=== PATIENT | male | born 1960 | race American Indian/Alaskan Native ===

== ENCOUNTER 2018-02-27 19:00 | Emergency (ER) | payer BC, OTHER, SELFPAY ==
[2018-02-27] MEDS ORDERED: Albuterol-Ipratrop 3 mg / 0.5 (3 ml) UD ONE (19:05)
[2018-02-27] MEDS ORDERED: Magnesium Sulfate 2 gm/50 ml 2 GM/50 ML BAG IVPB ONE (19:13)
[2018-02-27 19:14] VITALS: BMI 29.6
[2018-02-27] MEDS: Albuterol-Ipratrop 3 mg / 0.5 (3 ml) UD IH SCH ×3 (19:15→19:45)
--- NOTE | 2018-02-27 20:06 | ED PDOC ---
Arrival/HPI - General Historian: Patient - History of Present Illness Narrative History of Present Illness (Text): 02/27/18 20:02 57 yo M presents c/o SOB with wheezing due to his asthma, reports taking his inhaler and nebulizer with minima improvement prompting ER visit. Reports to having a cough and asthma symptoms for the past 1 week. Denies any fever, chills, CP, N/V, back pain. Has been hospitalized in the past due to his asthma, never been intubated. Has no other complaints. <Wendy Garza PA-C - Last Filed: 02/28/18 01:06> <Romero Chavarria - Last Filed: 02/28/18 06:06> - General Chief Complaint: Shortness Of Breath Time Seen by Provider: 02/27/18 19:07 Past Medical History - Infectious Disease Hx of Infectious Diseases: None - Tetanus Immunization Tetanus Immunization: Up to Date - Past Medical History Past Medical History: No Previous - Cardiac Hx Cardiac Disorders: No - Pulmonary Hx Asthma: Yes Hx Bronchitis: Yes Hx Chronic Obstructive Pulmonary Disease (COPD): Yes - Musculoskeletal/Rheumatological Hx Falls: No - Psychiatric Hx Substance Use: No - Past Surgical History Past Surgical History: No Previous - Anesthesia Hx Anesthesia: No Hx Anesthesia Reactions: No - Suicidal Assessment Feels Threatened In Home Enviroment: No <Wendy Garza PA-C - Last Filed: 02/28/18 01:06> Family/Social History Family/Social History: No Known Family HX Smoking Status: Light Smoker < 10 Cigarettes Daily Hx Alcohol Use: No Hx Substance Use: No Substance used: marijuana <Wendy Garza PA-C - Last Filed: 02/28/18 01:06> Allergies/Home Meds <Wendy Garza PA-C - Last Filed: 02/28/18 01:06> <Romero Chavarria - Last Filed: 02/28/18 06:06> Allergies/Adverse Reactions: Allergies HAIR DYE Allergy (Uncoded 02/27/18 19:10) RASH Review of Systems - Review of Systems Constitutional: absent: Fatigue, Fevers ENT: absent: Sore Throat, Rhinorrhea, Sinus Congestion Respiratory: SOB, Cough, Wheezing Cardiovascular: absent: Chest Pain, Edema Gastrointestinal: absent: Abdominal Pain, Nausea, Vomiting Musculoskeletal: absent: Arthralgias, Back Pain, Neck Pain Skin: absent: Rash, Pruritis Neurological: absent: Headache, Dizziness <Wendy Garza PA-C - Last Filed: 02/28/18 01:06> Physical Exam Vital Signs Temp Pulse Resp BP Pulse Ox 02/27/18 19:10 98.0 F 74 19 144/90 98 Temperature: Afebrile Blood Pressure: Normal Pulse: Regular Respiratory Rate: Normal Appearance: Positive for: Well-Appearing, Non-Toxic, Other (+mild respiratory distress, able to speak in short sentences, no tripod position) Mental Status: Positive for: Alert and Oriented X 3 - Systems Exam Head: Present: Atraumatic, Normocephalic Pupils: Present: PERRL Extroacular Muscles: Present: EOMI Conjunctiva: Present: Normal Mouth: Present: Moist Mucous Membranes Neck: Present: Normal Range of Motion Respiratory/Chest: Present: Clear to Auscultation, Good Air Exchange, R espiratory Distress (+b/l epiratory wheezing), Wheezes. No: Accessory Muscle Use Cardiovascular: Present: Regular Rate and Rhythm, Normal S1, S2. No: Murmurs Abdomen: No: Tenderness, Distention, Peritoneal Signs Back: Present: Normal Inspection Upper Extremity: Present: Normal Inspection. No: Cyanosis, Edema Lower Extremity: Present: Normal Inspection. No: Edema Neurological: Present: GCS=15, CN II-XII Intact, Speech Normal Skin: Present: Warm, Dry, Normal Color. No: Rashes Psychiatric: Present: Alert, Oriented x 3, Normal Insight, Normal Concentration <Wendy Garza PA-C - Last Filed: 02/28/18 01:06> Vital Signs Temp Pulse Resp BP Pulse Ox 02/27/18 21:32 98.1 F 72 18 132/69 97 02/27/18 20:59 98.1 F 69 18 152/87 H 100 02/27/18 19:11 22 98 02/27/18 19:10 98.0 F 74 19 144/90 98 <Romero Chavarria - Last Filed: 02/28/18 06:06> Medical Decision Making ED Course and Treatment: 02/27/18 20:05 Plan : - IV - labs - EKG - CXR - solumedrol IV - Mg IV - duonebs x3 EKG : NSR at 64 bpm, no acute ST changes. CXR : NAD. Labs reviewed, patient noted to be anemic with hgb of 10. On re-evaluation, patient reports improvement of symptoms, denies any CP, SOB or wheezing. On exam, patient remains AAOx3, in no acute distress. Lungs clear to auscultation, cardiac RRR. VS T 98.1 P 69 R 18 O2sat : 100%RA. Diagnostic results d/w the patient in great detail, notified of anemia and need for further follow up and evaluation as the patient denies any h/o anemia. Based on history, exam and diagnostic results, plan will be for outpatient follow up. Patient states that he used to take symbicort for his asthma and is asking for a refill. Patient instructed to follow-up with the clinic in 1-2 days without fail. Advised to take medication as prescribed. Return to the emergency room at any time for any new or worsening symptoms. Patient states he fully agrees with and understands discharge instructions. States that he agrees with the plan and disposition. Verbalized and repeated discharge instructions and plan. I have giv en the patient opportunity to ask any additional questions. - RAD Interpretation Radiology Orders: 02/27/18 19:11 CHEST PORTABLE [RAD] Stat - Medication Orders Current Medication Orders: Magnesium Sulfate (Magnesium Sulfate 2 Gm/50 Ml Water) 2 gm in 50 mls @ 50 mls/hr IVPB ONCE ONE Stop: 02/27/18 20:12 Discontinued Medications Albuterol/Ipratropium (Duoneb 3 Mg/0.5 Mg (3 Ml) Ud) 3 ml IH Q15M CORDELL Stop: 02/27/18 19:46 Last Admin: 02/27/18 19:45 Dose: 3 ml Methylprednisolone (Solu-Medrol) 125 mg IVP STAT STA Stop: 02/27/18 19:12 Last Admin: 02/27/18 19:16 Dose: 125 mg IVP Administration Document 02/27/18 19:16 SB (Rec: 02/27/18 19:54 [id number]) Charges for Administration # of IVP Administrations 1 <Wendy Garza PA-C - Last Filed: 02/28/18 01:06> - Lab Interpretations Lab Results: 02/27/18 20:08 02/27/18 20:08 Lab Results 02/27/18 20:08: Sodium 140, Potassium 3.9, Chloride 105, Carbon Dioxide 26, Anion Gap 13, BUN 14, Creatinine 1.0, Est GFR ( Amer) > 60, Est GFR (Non- Af Amer) > 60, Random Glucose 93, Calcium 8.7, Magnesium 2.0, Total Bilirubin 0.2, AST 22, ALT 28, Alkaline Phosphatase 85, Total Protein 6.4, Albumin 3.9, Globulin 2.5, Albumin/Globulin Ratio 1.6 02/27/18 20:08: WBC 5.6, RBC 3.28 L, Hgb 10.4 L, Hct 31.0 L, MCV 94.5, MCH 31.7, MCHC 33.5, RDW 13.6, Plt Count 246, MPV 8.9, Gran % 45.5 L, Lymph % (Auto) 39.9 H, [place] % (Auto) 9.2 H, Eos % (Auto) 5.0, Baso % (Auto) 0.4, Gran # 2.53, Lymph # (Auto) 2.2, [place] # (Auto) 0.5, Eos # (Auto) 0.3, Baso # (Auto) 0.02 - RAD Interpretation Radiology Orders: 02/27/18 19:11 CHEST PORTABLE [RAD] Stat - Medication Orders Current Medication Orders: Discontinued Medications Albuterol/Ipratropium (Duoneb 3 Mg/0.5 Mg (3 Ml) Ud) 3 ml IH Q15M CORDELL Stop: 02/27/18 19:46 Last Admin: 02/27/18 19:45 Dose: 3 ml Albuterol/Ipratropium (Duoneb 3 Mg/0.5 Mg (3 Ml) Ud) 3 ml IH STAT STA Stop: 02/27/18 20:41 Last Admin: 02/27/18 20:40 Dose: 3 ml Albuterol/Ipratropium (Duoneb 3 Mg/0.5 Mg (3 Ml) Ud) 3 ml IH STAT STA Stop: 02/27/18 20:43 Last Admin: 02/27/18 20:50 Dose: 3 ml Magnesium Sulfate (Magnesium Sulfate 2 Gm/50 Ml Water) 2 gm in 50 mls @ 50 mls/hr IVPB ONCE ONE Stop: 02/27/18 20:12 Last Admin: 02/27/18 20:00 Dose: 50 mls/hr eMAR Start Stop Document 02/27/18 20:00 (Rec: 02/27/18 20:19 [id number]) Intravenous Solution Start Date 02/27/18 Start Time 20:00 Methylprednisolone (Solu-Medrol) 125 mg IVP STAT STA Stop: 02/27/18 19:12 Last Admin: 02/27/18 19:16 Dose: 125 mg IVP Administration Document 02/27/18 19:16 RG (Rec: 02/27/18 19:54 RG [id number]) Charges for Administration # of IVP Administrations 1 <Romero Chavarria - Last Filed: 02/28/18 06:06> - PA / DIRECTOR OF REGIONAL SALES / Resident Statement MALA has reviewed & agrees with the documentation as recorded. <Wendy Garza PA-C - Last Filed: 02/28/18 01:06> - PA / DIRECTOR OF REGIONAL SALES / Resident Statement MALA has reviewed & agrees with the documentation as recorded. MALA has examined the patient and agrees with the treatment plan. <Romero Chavarria - Last Filed: 02/28/18 06:06> Disposition/Present on Arrival - Present on Arrival Any Indicators Present on Arrival: No History of DVT/PE: No History of Uncontrolled Diabetes: No Urinary Catheter: No History of Decub. Ulcer: No History Surgical Site Infection Following: None - Disposition Have Diagnosis and Disposition been Completed?: Yes Disposition Time: 21:30 Patient Plan: Discharge <Wendy Garza PA-C - Last Filed: 02/28/18 01:06> <Romero Chavarria - Last Filed: 02/28/18 06:06> - Disposition Diagnosis: Asthma, Anemia Disposition: HOME/ ROUTINE Condition: IMPROVED Discharge Instructions (ExitCare): Asthma in Adults, Normocytic Normochromic Anemia Additional Instructions: Thank you for letting us take care of you today. You were treated for asthma. The emergency medical care you received today was directed at your acute symptoms. If you were prescribed any medication, please fill it and take as directed. It may take several days for your symptoms to resolve. Return to the Emergency Department if your symptoms worsen, do not improve, or if you have any other problems. Please contact the clinic in 2 days for re-evaluation and follow up. Bring any paperwork you were given at discharge with you along with any medications you are taking to your follow up visit. Our treatment cannot replace ongoing medical care by a primary care provider (PCP) outside of the emergency department. Thank you for allowing the [facility] team to be part of your care today. If you had an X-Ray : A Radiologist will review the ED reading if any change in treatment is needed we will contact you. Your hgb was 10 : please follow this up with a doctor for further evaluation without fail. Prescriptions: Albuterol 0.083% [Albuterol Sulfate 3 Ml] 3 ml IH Q4 #100 neb RX: predniSONE [predniSONE Tab] 40 mg PO DAILY #8 tab Budesonide/Formoterol Fumarate [Symbicort] 2 puff IH BID #1 inhaler Referrals: PCP,NO [Primary Care Provider] - Follow up with primary [facility] [Outside] - Follow up with primary Forms: [employer] (Thai), WORK NOTE
[2018-02-27 20:19] LABS: BASO # 0.02 K/mm3 (0.0-2.0); BASO % 0.4 % (0.0-3.0); EOS # 0.3 (0.0-0.7); GRAN # 2.53 (1.4-6.5); GRAN % 45.5 % (50.0-68.0); HEMOGLOBIN 10.4 g/dL (14.0-18.0); LYMPH # 2.2 (1.2-3.4); LYMPH % 39.9 % (22.0-35.0); MEAN CELL VOLUME 94.5 fl (80.0-105.0); MEAN CORPUSCULAR HEMOGLOBIN 31.7 pg (25.0-35.0); MEAN CORPUSCULAR HGB CONC 33.5 g/dl (31.0-37.0); MEAN PLATELET VOLUME 8.9 fl (7.0-11.0); MONO # 0.5 (0.1-0.6); MONO % 9.2 % (1.0-6.0); RBC 3.28 10^6/uL (3.5-6.1); RED CELL DISTRIBUTION WIDTH 13.6 % (11.5-14.5); WHITE BLOOD COUNT 5.6 10^3/uL (4.5-11.0)
[2018-02-27 20:35] LABS: ALB/GLOB RATIO 1.6 (1.1-1.8); ALBUMIN 3.9 g/dL (3.0-4.8); ALT/SGPT 28 U/L (7-56); AST/SGOT 22 U/L (17-59); BLOOD UREA NITROGEN 14 mg/dL (7-21); CALCIUM 8.7 mg/dL (8.4-10.5); GFR NON-AFRICAN AMERICAN > 60
[2018-02-27] MEDS ORDERED: Albuterol-Ipratrop 3 mg / 0.5 (3 ml) UD IH STA ×2 (20:40→20:42)
[2018-02-27 21:00] VITALS: RESP 18; TEMP 98.1
[2018-02-27 21:41] VITALS: BP 132/69; PULSE 72; O2SAT 97
--- NOTE | 2018-02-28 08:55 | CARD ---
APPROVED REPORT Date of service: 02/27/2018 EKG Measurement Heart [id number] <Conclusion> Normal sinus rhythm Voltage criteria for left ventricular hypertrophy with repolarization changes Abnormal ECG
--- NOTE | 2018-02-28 08:59 | RAD ---
HISTORY: cough, wheezing COMPARISON: Chest x-ray performed 08/08/14 TECHNIQUE: Chest, one view. FINDINGS: LUNGS: No focal consolidation. Please note that chest x-ray has limited sensitivity for the detection of pulmonary masses. PLEURA: No significant pleural effusion identified. No definite pneumothorax . CARDIOVASCULAR: The cardiomediastinal silhouette appears within normal limits of size. No significant atherosclerotic calcification present. OSSEOUS STRUCTURES: No acute osseous abnormality identified. VISUALIZED UPPER ABDOMEN: Unremarkable. OTHER FINDINGS: None. IMPRESSION: No focal consolidation.
== END 2018-02-27 21:41 | disposition home or self-care (01) ==
LOC: ED 19:00
DX: D64.9 Anemia, unspecified (principal); J45.909 Unspecified asthma, uncomplicated; F17.210 Nicotine dependence, cigarettes, uncomplicated
CPT/HCPCS: 71045; 80053; 83735; 85025; 93005; 96374; 99284; J2930

== ENCOUNTER 2018-04-17 13:55 | Emergency (ER) | payer OTHER ==
[2018-04-17 13:55] VITALS: BMI 30.1
[2018-04-17 14:06] VITALS: TEMP 98
[2018-04-17] MEDS: Albuterol-Ipratrop 3 mg / 0.5 (3 ml) UD IH SCH ×3 (14:36→15:10)
--- NOTE | 2018-04-17 14:36 | ED PDOC ---
Arrival/HPI - General Historian: Patient - History of Present Illness Narrative History of Present Illness (Text): 04/17/18 14:32 57 y/o M with PMHx of Asthma presents to ED with complaints of cough with productive white sputum, wheezing and shortness of breath that's been ongoing for the past 2 weeks, with worsening symptoms since 9am today and associated subjective fevers and chills. He reports he tried his symbicort and ventolin inhalers today, with minimal improvement in symptoms. He reports he has recently been using his symbicort more than usual, and has increased his ventolin use to >7x/day. He denies headache, dizziness, fatigue, chest pain, palpitations, nausea, vomiting, hematemesis, constipation, diarrhea, hematochezia, hematuria dysuria. He denies any recent bleeding episodes. PMD: None Time/Duration: Prior to Arrival Symptom Onset: Sudden Symptom Course: Unchanged Severity Level: Moderate <Tara Skinner - Last Filed: 04/17/18 17:43> <Lam Wells - Last Filed: 04/17/18 18:34> - General Chief Complaint: Shortness Of Breath Time Seen by Provider: 04/17/18 14:02 Past Medical History - Provider Review Nursing Documentation Reviewed: Yes - Infectious Disease Hx of Infectious Diseases: None - Tetanus Immunization Tetanus Immunization: Up to Date - Past Medical History Past Medical History: No Previous - Cardiac Hx Cardiac Disorders: No - Pulmonary Hx Asthma: Yes Hx Bronchitis: Yes Hx Chronic Obstructive Pulmonary Disease (COPD): Yes - Musculoskeletal/Rheumatological Hx Falls: No - Psychiatric Hx Substance Use: No - Past Surgical History Past Surgical History: No Previous - Anesthesia Hx Anesthesia: No Hx Anesthesia Reactions: No - Suicidal Assessment Feels Threatened In Home Enviroment: No <Tara Skinner - Last Filed: 04/17/18 17:43> Family/Social History - Physician Review Nursing Documentation Reviewed: Yes Family/Social History: Unknown Family HX Smoking Status: Light Smoker < 10 Cigarettes Daily Hx Alcohol Use: No Hx Substance Use: No Substance used: marijuana <Tara Skinner - Last Filed: 04/17/18 17:43> Allergies/Home Meds <Tara Skinner - Last Filed: 04/17/18 17:43> <Lam Wells - Last Filed: 04/17/18 18:34> Allergies/Adverse Reactions: Allergies HAIR DYE Allergy (Uncoded 02/27/18 19:10) RASH Review of Systems - Review of Systems Constitutional: Fevers Eyes: Normal ENT: Normal Respiratory: SOB, Cough, Sputum (white), Wheezing Cardiovascular: Normal. absent: Palpitations Gastrointestinal: Normal. absent: Constipation Genitourinary Male: Normal Musculoskeletal: Normal. absent: Back Pain Skin: Normal. absent: Rash Neurological: Normal. absent: Headache, Dizziness Endocrine: Normal Hemo/Lymphatic: Normal Psychiatric: Normal <Tara Skinner - Last Filed: 04/17/18 17:43> Physical Exam Vital Signs Reviewed: Yes Vital Signs Temp Pulse Resp BP Pulse Ox 04/17/18 14:02 98 F 72 24 102/44 L 98 Temperature: Afebrile Blood Pressure: Normal Pulse: Regular Respiratory Rate: Normal Appearance: Positive for: Well-Appearing, Non-Toxic, Comfortable Pain Distress: None Mental Status: Positive for: Alert and Oriented X 3 - Systems Exam Head: Present: Atraumatic, Normocephalic Pupils: Present: PERRL Extroacular Muscles: Present: EOMI Conjunctiva: Present: Normal Mouth: Present: Moist Mucous Membranes Neck: Present: Normal Range of Motion Respiratory/Chest: Present: Respiratory Distress, Wheezes. No: Rales Cardiovascular: Present: Regular Rate and Rhythm, Normal S1, S2. No: Murmurs Abdomen: No: Tenderness, Distention, Peritoneal Signs Back: Present: Normal Inspection Upper Extremity: Present: Normal Inspection. No: Cyanosis, Edema Lower Extremity: Present: Normal Inspection. No: Edema Neurological: Present: GCS=15, CN II-XII Intact, Speech Normal Skin: Present: Warm, Dry, Normal Color. No: Rashes Psychiatric: Present: Alert, Oriented x 3, Normal Insight, Normal Concentration <Tara Skinner - Last Filed: 04/17/18 17:43> Vital Signs Temp Pulse Resp BP Pulse Ox 04/17/18 14:02 98 F 72 24 102/44 L 98 <Lam Wells - Last Filed: 04/17/18 18:34> Medical Decision Making ED Course and Treatment: 04/17/18 14:39 Impression: 57 y/o M with PMHx of asthma presents to ED with acute symptoms of SOB, cough and wheezing with subjective fevers/chills since this am Differential diagnosis includes but does not exclude: Asthma exacerbation Plan: Duoneb IV solumedrol Labs EKG Chest Xray Rapid flu Reassess & Dispo Progress Notes: 04/17/18 15:41 CBC resulted. FOBT obtained with negative result. Respiratory status has improved. Pt has no signs of active bleeding, he is hemodynamically stable. 04/17/18 16:56 Extensive discussion with patient at length about low hemoglobin level. Pt instructed in detail to follow-up with [facility] to make an appointment. Pt also explained in detail that he requires a gastroenterological workup, including endoscopy/colonoscopy. Pt to be discharged with instructions on follow-up. Pt denies acute complaints. His vital signs are stable. - RAD Interpretation Radiology Orders: 04/17/18 14:23 CHEST PORTABLE [RAD] Stat - EKG Interpretation EKG Interpretation (Text): 04/17/18 15:05 Sinus bradycardia Moderate voltage criteria for LVH HR: 57 QTc: 430ms - Medication Orders Current Medication Orders: Albuterol/Ipratropium (Duoneb 3 Mg/0.5 Mg (3 Ml) Ud) 3 ml IH Q15M CORDELL Stop: 04/17/18 15:01 Discontinued Medications Methylprednisolone (Solu-Medrol) 125 mg IVP STAT STA Stop: 04/17/18 14:25 <Tara Skinner - Last Filed: 04/17/18 17:43> ED Course and Treatment: 04/17/18 15:08 Patient is a 57 year old male presenting to the emergency department complaining of shortness of breath with associated cough and wheezing. In agreement with resident note, which includes further HPI details. Patient was seen and evaluated with resident, came up with plan and treatment together. - RAD Interpretation Radiology Orders: 04/17/18 14:23 CHEST PORTABLE [RAD] Stat - Medication Orders Current Medication Orders: Discontinued Medications Albuterol/Ipratropium (Duoneb 3 Mg/0.5 Mg (3 Ml) Ud) 3 ml IH Q15M CORDELL Stop: 04/17/18 15:01 Last Admin: 04/17/18 14:51 Dose: 3 ml Methylprednisolone (Solu-Medrol) 125 mg IVP STAT STA Stop: 04/17/18 14:25 Last Admin: 04/17/18 14:36 Dose: 125 mg IVP Administration Document 04/17/18 14:36 [email or web address] (Rec: 04/17/18 14:36 DEIDRA [facility] [id number]) Charges for Administration # of IVP Administrations 1 <RussellLam Rowley - Last Filed: 04/17/18 18:34> - PA / LENDING ACTIVITIES SUPERVISOR / Resident Statement / has reviewed & agrees with the documentation as recorded. / has examined the patient and agrees with the treatment plan. <Tara Skinner - Last Filed: 04/17/18 17:43> - PA / LENDING ACTIVITIES SUPERVISOR / Resident Statement MALA has reviewed & agrees with the documentation as recorded. / has examined the patient and agrees with the treatment plan. - Scribe Statement The provider has reviewed the documentation as recorded by the Mistiibrobert Marx All medical record entries made by the Scribrobert were at my direction and personally dictated by me. I have reviewed the chart and agree that the record accurately reflects my personal performance of the history, physical exam, medical decision making, and the department course for this patient. I have also personally directed, reviewed, and agree with the discharge instructions and disposition. <RussellLam Rowley - Last Filed: 04/17/18 18:34> Disposition/Present on Arrival - Present on Arrival Any Indicators Present on Arrival: No History of DVT/PE: No History of Uncontrolled Diabetes: No Urinary Catheter: No History of Decub. Ulcer: No History Surgical Site Infection Following: None - Disposition Have Diagnosis and Disposition been Completed?: Yes Disposition Time: 16:56 <Tara Skinner - Last Filed: 04/17/18 17:43> - Disposition Patient Plan: Discharge <Lam Wells - Last Filed: 04/17/18 18:34> - Disposition Diagnosis: Asthma exacerbation Disposition: HOME/ ROUTINE Condition: STABLE Discharge Instructions (ExitCare): Asthma, Adult (DC) Additional Instructions: Danish Rodríguez, thank you for letting us take care of you today. The emergency medical care you received today was directed at your acute symptoms. If you were prescribed any medication, please fill it and take as directed. It may take several days for your symptoms to resolve. Return to the Emergency Department if your symptoms worsen, do not improve, or if you have any other problems. Please contact your doctor or call one of the physicians/clinics you have been referred to that are listed on the Patient Visit Information form that is includ ed in your discharge packet. Bring any paperwork you were given at discharge with you along with any medications you are taking to your follow up visit. Our treatment cannot replace ongoing medical care by a primary care provider outside of the emergency department. Please make an appointment at the [facility] within 1 week of being discharged. Please discuss your ED visit here today, and your low blood count with the physician. If you experience any episode of bleeding from your mouth, or in your stool, please return to the nearest ER. If you notice that you feel fatigued, dizzy, short of breath, please return to the nearest ER Thank you for allowing the [facility] team to be part of your care today. Prescriptions: Albuterol HFA [Ventolin HFA 90 mcg/actuation (8 g)] 2 puff IH [id number] PRN #1 inhaler PRN Reason: Shortness Of Breath RX: predniSONE [predniSONE Tab] 60 mg PO DAILY #12 tab Referrals: PCP,NO [Primary Care Provider] - Follow up with primary Elisabeth Muñoz MD [Medical Doctor] - Follow up with primary Forms: [employer] (Kyrgyz)
--- NOTE | 2018-04-17 14:51 | RAD ---
Date of service: 04/17/2018 HISTORY: SOB COMPARISON: 02/27/2018 FINDINGS: LUNGS: No active pulmonary disease. PLEURA: No significant pleural effusion identified, no pneumothorax apparent. CARDIOVASCULAR: No aortic atherosclerotic calcification present. Normal cardiac size. No pulmonary vascular congestion. OSSEOUS STRUCTURES: No significant abnormalities. VISUALIZED UPPER ABDOMEN: Normal. OTHER FINDINGS: None. IMPRESSION: No active disease.
[2018-04-17 15:09] LABS: BASO # 0.02 K/mm3 (0.0-2.0); BASO % 0.5 % (0.0-3.0); EOS # 0.3 (0.0-0.7); EOS % 7.5 % (1.5-5.0); GRAN # 1.21 (1.4-6.5); GRAN % 31.5 % (50.0-68.0); HEMOGLOBIN 9.4 g/dL (14.0-18.0); LYMPH # 1.7 (1.2-3.4); LYMPH % 44.4 % (22.0-35.0); MEAN CELL VOLUME 84.5 fl (80.0-105.0); MEAN CORPUSCULAR HGB CONC 30.7 g/dl (31.0-37.0); MEAN PLATELET VOLUME 8.6 fl (7.0-11.0); MONO # 0.6 (0.1-0.6); MONO % 16.1 % (1.0-6.0); RBC 3.62 10^6/uL (3.5-6.1); WHITE BLOOD COUNT 3.9 10^3/uL (4.5-11.0)
[2018-04-17 15:19] LABS: ALB/GLOB RATIO 1.5 (1.1-1.8); ALBUMIN 4.2 g/dL (3.0-4.8); ALT/SGPT 29 U/L (7-56); AST/SGOT 28 U/L (17-59); BLOOD UREA NITROGEN 12 mg/dL (7-21); GFR NON-AFRICAN AMERICAN > 60
[2018-04-17 15:27] LABS: B-TYPE NATRIURETIC PEPTIDE 112 pg/mL (0-450)
[2018-04-17 16:46] VITALS: BP 133/73; PULSE 80; RESP 18; O2SAT 100
--- NOTE | 2018-04-18 09:42 | CARD ---
APPROVED REPORT Date of service: 04/17/2018 EKG Measurement Heart [id number] <Conclusion> Poor data quality, interpretation may be adversely affected Sinus bradycardia Moderate voltage criteria for LVH, may be normal variant Borderline ECG
== END 2018-04-17 18:10 | disposition home or self-care (01) ==
LOC: ED 13:55
DX: J45.901 Unspecified asthma with (acute) exacerbation (principal); F17.210 Nicotine dependence, cigarettes, uncomplicated
CPT/HCPCS: 71045; 80053; 83880; 85025; 87804; 93005; 96374; 99281; J2930

== ENCOUNTER 2018-08-10 11:07 | Observation (INO) | payer BC, OTHER ==
[2018-08-10 11:07] VITALS: BMI 30.1
--- NOTE | 2018-08-10 11:24 | ED PDOC ---
Arrival/HPI - General Time Seen by Provider: 08/10/18 11:07 Historian: Patient - History of Present Illness Narrative History of Present Illness (Text): 08/10/18 11:17 58 year old male, whose past medical history includes Asthma, presents to the emergency department complaining of wheezing, shortness of breath, and cough for the past few days. Patient reports he tried his nebulizer treatment without relief. Patient is unsure what triggered his asthma. He admits to being hospitalized due to his asthma exacerbation in the past, but denies ever being intubated. Patient denies any fever, chills, chest pain, abdominal pain, nausea, vomiting, diarrhea, urinary symptoms, back pain, neck pain, headache, dizziness, or any other complaints. PMD: None Time/Duration: Other (few days) Symptom Onset: Sudden Symptom Course: Worsening Activities at Onset: Light Context: Home Past Medical History - Provider Review Nursing Documentation Reviewed: Yes - Infectious Disease Hx of Infectious Diseases: None - Tetanus Immunization Tetanus Immunization: Up to Date - Past Medical History Past Medical History: No Previous - Cardiac Hx Cardiac Disorders: No - Pulmonary Hx Asthma: Yes Hx Bronchitis: Yes Hx Chronic Obstructive Pulmonary Disease (COPD): Yes - Neurological Hx Neurological Disorder: No - HEENT Hx HEENT Disorder: No - Renal Hx Renal Disorder: No - Endocrine/Metabolic Hx Endocrine Disorders: No - Hematological/Oncological Hx Blood Disorders: No - Integumentary Hx Dermatological Disorder: No - Musculoskeletal/Rheumatological Hx Musculoskeletal Disorders: No Hx Falls: No - Gastrointestinal Hx Gastrointestinal Disorders: No - Genitourinary/Gynecological Hx Genitourinary Disorders: No - Psychiatric Hx Psychophysiologic Disorder: No Hx Substance Use: No - Past Surgical History Past Surgical History: No Previous - Surgical History Other/Comment: Cyst removal on the right hand. - Anesthesia Hx Anesthesia: Yes Hx Anesthesia Reactions: No Hx Malignant Hyperthermia: No - Suicidal Assessment Feels Threatened In Home Enviroment: No Family/Social History - Physician Review Nursing Documentation Reviewed: Yes Family/Social History: No Known Family HX Smoking Status: Former Smoker Hx Alcohol Use: No Hx Substance Use: No Substance used: marijuana Allergies/Home Meds Allergies/Adverse Reactions: Allergies HAIR DYE Allergy (Uncoded 08/10/18 11:18) RASH Review of Systems - Physician Review All systems were reviewed & negative as marked: Yes - Review of Systems Constitutional: absent: Fevers, Other (chills) Respiratory: SOB, Cough, Wheezing Cardiovascular: absent: Chest Pain Gastrointestinal: absent: Abdominal Pain, Diarrhea, Nausea, Vomiting Genitourinary Male: absent: Dysuria, Frequency, Hematuria Musculoskeletal: absent: Back Pain, Neck Pain Neurological: absent: Headache, Dizziness Physical Exam Vital Signs Reviewed: Yes Temperature: Afebrile Blood Pressure: Normal Pulse: Regular Respiratory Rate: Tachypneic Appearance: Positive for: Well-Appearing, Non-Toxic, Comfortable Pain Distress: None Mental Status: Positive for: Alert and Oriented X 3 - Systems Exam Head: Present: Atraumatic, Normocephalic Pupils: Present: PERRL Extroacular Muscles: Present: EOMI Conjunctiva: Present: Normal Mouth: Present: Moist Mucous Membranes Neck: Present: Normal Range of Motion Respiratory/Chest: Present: Wheezes (diffuse wheezing). No: Respiratory Distress, Accessory Muscle Use Cardiovascular: Present: Regular Rate and Rhythm, Normal S1, S2. No: Murmurs Abdomen: No: Tenderness, Distention, Peritoneal Signs Back: Present: Normal Inspection Upper Extremity: Present: Normal Inspection. No: Cyanosis, Edema Lower Extremity: Present: Normal Inspection. No: Edema Neurological: Present: GCS=15, Speech Normal Skin: Present: Warm, Dry, Normal Color. No: Rashes Psychiatric: Present: Alert, Oriented x 3, Normal Insight, Normal Concentration Medical Decision Making ED Course and Treatment: 08/10/18 11:20 Impression: 58 year old male presents complaining of wheezing, shortness of breath, and cough that began for the past few days. Plan: -- Labs -- CXR -- Douneb, Solu-medrol -- EKG -- Reassess and disposition Prior Visits: Notes and results from previous visits were reviewed. Progress Notes: EKG shows Sinus Bradycardia at [address]/T wave change. Interpreted by. CXR Dictator : Franklin Sharp MD Report Date : 08/10/2018 12:15 IMPRESSION: No active disease. 08/10/18 12:[address] Dorado who is aware and agrees with the plan. Accepts patient into hospitalist service. 08/10/18 14:31 persistent wheezing will obs. - Lab Interpretations I have reviewed the lab results: Yes - RAD Interpretation Radiology Orders: 08/10/18 11:17 CXR [CHEST PORTABLE] [RAD] Stat [employer] Travel Counselor: Radiologist - EKG Interpretation Interpreted by ED Physician: Yes Type: 12 lead EKG - Medication Orders Current Medication Orders: Albuterol/Ipratropium (Duoneb 3 Mg/0.5 Mg (3 Ml) Ud) 3 ml IH Q15M CORDELL Stop: 08/10/18 12:01 Methylprednisolone (Solu-Medrol) 125 mg IVP STAT STA Stop: 08/10/18 11:17 - Scribe Statement The provider has reviewed the documentation as recorded by the Carri Rodrigues Provider Scribe Attestation: All medical record entries made by the Carri were at my direction and personally dictated by me. I have reviewed the chart and agree that the record accurately reflects my personal performance of the history, physical exam, medical decision making, and the department course for this patient. I have also personally directed, reviewed, and agree with the discharge instructions and disposition. Disposition/Present on Arrival - Present on Arrival Any Indicators Present on Arrival: No History of DVT/PE: No History of Uncontrolled Diabetes: No Urinary Catheter: No History Surgical Site Infection Following: None - Disposition Have Diagnosis and Disposition been Completed?: Yes Diagnosis: Asthma Disposition: HOSPITALIZED Disposition Time: 12:00 Condition: STABLE
[2018-08-10] MEDS: Albuterol-Ipratrop 3 mg / 0.5 (3 ml) UD IH SCH ×5 (11:48→19:27)
[2018-08-10] MEDS ORDERED: Albuterol-Ipratrop 3 mg / 0.5 (3 ml) UD ONE ×2 (11:50→12:50)
[2018-08-10 12:10] LABS: BASO # 0.03 K/mm3 (0.0-2.0); BASO % 0.8 % (0.0-3.0); EOS # 0.3 (0.0-0.7); EOS % 7.7 % (1.5-5.0); HEMOGLOBIN 14.5 g/dL (14.0-18.0); LYMPH # 1.8 (1.2-3.4); LYMPH % 47.4 % (22.0-35.0); MEAN CELL VOLUME 86.1 fl (80.0-105.0); MEAN CORPUSCULAR HEMOGLOBIN 28.5 pg (25.0-35.0); MEAN CORPUSCULAR HGB CONC 33.1 g/dl (31.0-37.0); MONO # 0.4 (0.1-0.6); MONO % 10.1 % (1.0-6.0); RBC 5.09 10^6/uL (3.5-6.1); RED CELL DISTRIBUTION WIDTH 16.3 % (11.5-14.5); WHITE BLOOD COUNT 3.8 10^3/uL (4.5-11.0)
--- NOTE | 2018-08-10 12:18 | RAD ---
Date of service: 08/10/2018 HISTORY: asthma/cough COMPARISON: 04/17/2018 TECHNIQUE: 1 view obtained. FINDINGS: LUNGS: No active pulmonary disease. PLEURA: No significant pleural effusion identified, no pneumothorax apparent. CARDIOVASCULAR: No aortic atherosclerotic calcification present. Normal cardiac size. No pulmonary vascular congestion. OSSEOUS STRUCTURES: No significant abnormalities. VISUALIZED UPPER ABDOMEN: Normal. OTHER FINDINGS: None. IMPRESSION: No active disease.
[2018-08-10 12:25] LABS: INR 0.98; PARTIAL THROMBOPLASTIN TIME 28.6 Seconds (26.9-38.3); PROTHROMBIN TIME 11.1 SECONDS (9.4-12.5)
[2018-08-10 12:39] LABS: ALB/GLOB RATIO 1.6 (1.1-1.8); ALBUMIN 4.2 g/dL (3.0-4.8); ALT/SGPT 20 U/L (7-56); AST/SGOT 23 U/L (17-59); BLOOD UREA NITROGEN 18 mg/dL (7-21); CALCIUM 9.2 mg/dL (8.4-10.5); GFR NON-AFRICAN AMERICAN 57
[2018-08-10 12:51] LABS: TROPONIN I < 0.01 ng/mL
--- NOTE | 2018-08-10 13:00 | CP.PCM.HP ---
<Zoya Isaacs - Last Filed: 08/10/18 14:57> History of Present Illness - History of Present Illness History of Present Illness: Pgy3 Hospitalist H&P for Dr. Dorado 58 year old male with PMHx of asthma who presents to the ED with complaints of difficulty breathing. Patient states that for the past few weeks he has been having these symptoms which has been getting progressively worse. He has been using his nebulizer approximately 3-4 times a day, which normally provides him relief. However, for the past week he has had less relief. He claims that his Ventolin inhaler hasn't been helping for the last few days as well. For the past month, he has also been awoken by his symptoms at least once a day. He says he has to use his rescue inhaler every 4 hours and receives no relief. The patient says that for the past year his house has been having work done, such as painting and getting new pipes. However, he is unsure whether his symptoms have gotten worse since then. He denies exacerbation of his symptoms during a particular season, but says that whenever the weather changes his symptoms worsen. Patient denies any history of intubation. On ROS denied fever, chills, headache, dizziness, chest pain, palpitations, cough, abd pain, nausea, vomiting, bowel/bladder complaints, pain/swelling in his legs b/l. He denied any recent illnesses, travel, sick contacts. PMHx: asthma (diagnosed in 2007) PSHx: denies Allergies: NKDA Medications: Ventolin, Albuterol Nebulizer, Symbicort FamHx: Mom (HTN), Dad ("colon problem" in his 60 s), Brothers x 2 (healthy), Sis ters x 2 (healthy) Social history: Patient is a former smoker (quit 6 months ago) and has an extensive history of smoking at least 1/2 ppd for an unknown amount of time; denies alcohol; denies illicit drug use PMD: none Life Skills Specialist: none Pharmacy: [facility] Present on Admission - Present on Admission Any Indicators Present on Admission: No Review of Systems - Review of Systems All systems: reviewed and no additional remarkable complaints except Review of Systems: as per HPI Past Patient History - Infectious Disease Hx of Infectious Diseases: None - Tetanus Immunizations Tetanus Immunization: Up to Date - Past Medical History & Family History Past Medical History?: Yes - Past Social History Smoking Status: Former Smoker - CARDIAC Hx Cardiac Disorders: No - PULMONARY Hx Asthma: Yes Hx Bronchitis: Yes Hx Chronic Obstructive Pulmonary Disease (COPD): Yes - NEUROLOGICAL Hx Neurological Disorder: No - HEENT Hx HEENT Problems: No - RENAL Hx Chronic Kidney Disease: No - ENDOCRINE/METABOLIC Hx Endocrine Disorders: No - HEMATOLOGICAL/ONCOLOGICAL Hx Blood Disorders: No - INTEGUMENTARY Hx Dermatological Problems: No - MUSCULOSKELETAL/RHEUMATOLOGICAL Hx Musculoskeletal Disorders: No Hx Falls: No - GASTROINTESTINAL Hx Gastrointestinal Disorders: No - GENITOURINARY/GYNECOLOGICAL Hx Genitourinary Disorders: No - PSYCHIATRIC Hx Psychophysiologic Disorder: No Hx Substance Use: No - SURGICAL HISTORY Other/Comment: Cyst removal on the right hand. - ANESTHESIA Hx Anesthesia: Yes Hx Anesthesia Reactions: No Hx Malignant Hyperthermia: No Meds Home Medications: Home Medication List Medication Instructions Recorded Confirmed Type Albuterol HFA [Ventolin HFA 90 2 puff IH [id number] PRN #1 inhaler 08/11/18 Rx mcg/actuation (8 g)] Budesonide/Formoterol Fumarate 2 puff IH BID #1 inhaler 08/11/18 Rx [Symbicort 80-4.5 Mcg Inhaler] predniSONE [Prednisone] See Taper PO DAILY #1 tab 08/11/18 Rx Allergies/Adverse Reactions: Allergies Allergy/AdvReac Type Severity Reaction Status Date / Time HAIR DYE Allergy RASH Uncoded 08/10/18 11:18 Physical Exam - Constitutional Appears: Non-toxic, No Acute Distress - Head Exam Head Exam: ATRAUMATIC, NORMAL INSPECTION, NORMOCEPHALIC - Eye Exam Eye Exam: EOMI, Normal appearance, PERRL. absent: Conjunctival injection, Scleral icterus - ENT Exam ENT Exam: Mucous Membranes Moist - Neck Exam Neck exam: Positive for: Full Rom, Normal Inspection. Negative for: Lymphadenopathy - Respiratory Exam Respiratory Exam: Accessory Muscle Use, Clear to Auscultation Bilateral, NORMAL BREATHING PATTERN. absent: Rales, Rhonchi, Wheezes, Respiratory Distress - Cardiovascular Exam Cardiovascular Exam: REGULAR RHYTHM, +S1, +S2 - GI/Abdominal Exam GI & Abdominal Exam: Normal Bowel Sounds, Soft. absent: Distended, Firm, Guarding, Rigid, Tenderness - Rectal Exam Rectal Exam: Deferred - Extremities Exam Extremities exam: Positive for: normal capillary refill, normal inspection, pedal pulses present. Negative for: pedal edema - Back Exam Back exam: NORMAL INSPECTION. absent: rash noted, tenderness - Neurological Exam Neurological exam: Alert, CN II-XII Intact, Oriented x3 - Psychiatric Exam Psychiatric exam: Normal Affect, Normal Mood - Skin Skin Exam: Dry, Intact, Normal Color, Warm Results - Vital Signs Recent Vital Signs: Last Vital Signs Temp 97.9 F 08/10/18 12:13 Pulse 88 08/10/18 12:13 Resp 20 08/10/18 12:13 BP 135/68 08/10/18 12:13 Pulse Ox 97 08/10/18 12:13 - Labs Result Diagrams: 08/10/18 11:45 08/10/18 11:45 Labs: Laboratory Results - last 24 hr 08/10/18 08/10/18 08/10/18 11:45 11:45 11:45 WBC 3.8 L RBC 5.09 Hgb 14.5 D Hct 43.8 MCV 86.1 MCH 28.5 MCHC 33.1 RDW 16.3 H Plt Count 273 MPV 10.0 Neut % (Auto) 34.0 L Lymph % (Auto) 47.4 H Nolan % (Auto) 10.1 H Eos % (Auto) 7.7 H Baso % (Auto) 0.8 Lymph # (Auto) 1.8 Nolan # (Auto) 0.4 Eos # (Auto) 0.3 Baso # (Auto) 0.03 Absolute Neuts (auto) 1.29 L PT 11.1 INR 0.98 APTT 28.6 Sodium 141 Potassium 4.4 Chloride 104 Carbon Dioxide 29 Anion Gap 13 BUN 18 Creatinine 1.3 Est GFR ( Amer) > 60 Est GFR (Non-Af Amer) 57 Random Glucose 97 Calcium 9.2 Total Bilirubin 0.5 AST 23 ALT 20 Alkaline Phosphatase 101 Lactate Dehydrogenase 563 Total Creatine Kinase 297 H Troponin I < 0.01 Total Protein 6.9 Albumin 4.2 Globulin 2.7 Albumin/Globulin Ratio 1.6 Assessment & Plan - Assessment and Plan (Free Text) Assessment: 58 year old male with PMHx of asthma who presents to the ED with complaints of difficulty breathing. 1. Asthma exacerbation 2. Tobacco abuse 3. Poor outpatient follow up Plan: Patient's blood work, vitals, and imaging noted in chart. Patient received Duoneb x 3 in the ED and solumedrol 125mg. CXR unremarkable. Will start patient on IV steroids and breathing treatments. Will continue home medications Brovana and Pulmicort and will add on Singulair at this time. Patient counseled thoroughly on the importance of smoking cessation. As per EMR patient tested + for cocaine in 2014. Will obtain uds and alcohol level. Patient will be given a referral to [facility] for proper outpatient follow up on discharge. SCDs in place and patient on regular diet. Will continue to monitor overnight. Discussed with Dr. Estrada Isaacs PGY3 <Gabo Dorado - Last Filed: 08/11/18 15:15> Results - Vital Signs Recent Vital Signs: Last Vital Signs Temp 97.8 F 08/11/18 06:00 Pulse 62 08/11/18 06:00 Resp 18 08/11/18 06:00 BP 144/68 08/11/18 06:00 Pulse Ox 97 08/11/18 06:00 - Labs Result Diagrams: 08/11/18 11:00 08/11/18 11:00 Labs: Laboratory Results - last 24 hr 08/11/18 08/11/18 11:00 11:00 WBC 15.1 H D RBC 4.74 Hgb 13.6 L Hct 41.1 L MCV 86.7 MCH 28.7 MCHC 33.1 RDW 16.7 H Plt Count 277 MPV 9.6 Sodium 138 Potassium 4.2 Chloride 105 Carbon Dioxide 23 Anion Gap 15 BUN 19 Creatinine 1.1 Est GFR ( Amer) > 60 Est GFR (Non-Af Amer) > 60 Random Glucose 161 H Calcium 9.5 Total Bilirubin 0.4 AST 19 ALT 15 Alkaline Phosphatase 98 Total Protein 7.0 Albumin 4.3 Globulin 2.7 Albumin/Globulin Ratio 1.6 Attending/Attestation - Attestation I have personally seen and examined this patient.: Yes I have fully participated in the care of the patient.: Yes I have reviewed all pertinent clinical information: Yes Notes (Text): 08/11/18 15:12 Medical record note made by the resident after discussion with my direction and input after the patient was personally seen and examined by me. I have reviewed the chart and agree that the record accurately reflects by personal performance of the history, physical exam, data review, and medical decision-making, in the course for the patient. I have also personally directed the plan of care. 58 yrs old male with PMH of Mild Persistent Asthma is admitted with acute asthma exacerbation. Agreed with Nebulization/Steroid . Chest X ray is negative for Pneumonia. Patient has Neutropenia but he is afebrile.Etiology is unclear.Will monitor WBC count. Issue of compliance with medication was discussed in detail with him. 08/11/18 15:14
[2018-08-10 13:04] LABS: CK-MB 3.2 ng/mL (0.0-3.6)
[2018-08-10] MEDS ORDERED: Albuterol-Ipratrop 3 mg / 0.5 (3 ml) UD IH PRN (13:13)
[2018-08-10 13:56] LABS: ARTERIAL BLOOD GAS O2 SAT 77.5 % (95-98); ARTERIAL BLOOD GAS PCO2 57 mm/Hg (35-45); ARTERIAL BLOOD GAS TCO2 29.7 mmol.L (22-28)
[2018-08-10] MEDS ORDERED: Pneumococcal 23-Valent Vaccine IM ONE (14:56)
--- NOTE | 2018-08-10 19:15 | CARD ---
APPROVED REPORT Date of service: 08/10/2018 EKG Measurement Heart [id number] <Conclusion> Sinus bradycardia Left axis deviation Moderate voltage criteria for LVH, may be normal variant Nonspecific ST and T wave abnormality Abnormal ECG
[2018-08-10] MEDS ORDERED: Arformoterol 15 mcg/2 ml Inh Sol IH SCH (20:00)
[2018-08-10] MEDS ORDERED: Budesonide 0.25 mg/2 ml Inhal Susp UD IH SCH (20:00)
[2018-08-10] MEDS: MethylPREDNISolone 40 mg Vial IVP SCH (21:43)
[2018-08-11] MEDS: Albuterol-Ipratrop 3 mg / 0.5 (3 ml) UD IH SCH ×3 (01:35→13:13)
[2018-08-11 08:18] VITALS: BP 144/68; PULSE 62; RESP 18; TEMP 97.8; O2SAT 97
[2018-08-11] MEDS: MethylPREDNISolone 40 mg Vial IVP SCH (10:19)
[2018-08-11 11:16] LABS: HEMOGLOBIN 13.6 g/dL (14.0-18.0); MEAN CELL VOLUME 86.7 fl (80.0-105.0); MEAN CORPUSCULAR HEMOGLOBIN 28.7 pg (25.0-35.0); MEAN CORPUSCULAR HGB CONC 33.1 g/dl (31.0-37.0); MEAN PLATELET VOLUME 9.6 fl (7.0-11.0); RBC 4.74 10^6/uL (3.5-6.1); RED CELL DISTRIBUTION WIDTH 16.7 % (11.5-14.5); WHITE BLOOD COUNT 15.1 10^3/uL (4.5-11.0)
[2018-08-11 11:47] LABS: ALB/GLOB RATIO 1.6 (1.1-1.8); ALBUMIN 4.3 g/dL (3.0-4.8); ALT/SGPT 15 U/L (7-56); AST/SGOT 19 U/L (17-59); BLOOD UREA NITROGEN 19 mg/dL (7-21); CALCIUM 9.5 mg/dL (8.4-10.5); GFR NON-AFRICAN AMERICAN > 60
--- NOTE | 2018-08-11 14:28 | CP.PCM.DIS ---
<Zoya Isaacs - Last Filed: 08/11/18 14:29> Provider - Provider Date of Admission: 08/10/18 12:59 Attending physician: Gabo Dorado MD Primary care physician: NO FAMILY PROVIDER Consults: 08/10/18 14:56 Inpatient BUSINESS ANALYSIS PROFESSIONAL Core Measures Referral Routine Comment: asthma Physician Instructions: Reason For Exam: assess Transition In Care/Readmission Reduction Routine Comment: asthma Physician Instructions: Reason For Exam: assess Time Spent in preparation of Discharge (in minutes): 45 Hospital Course - Lab Results Lab Results: Most Recent Lab Values WBC 15.1 10^3/uL (4.5-11.0) H D 08/11/18 11:00 RBC 4.74 10^6/uL (3.5-6.1) 08/11/18 11:00 Hgb 13.6 g/dL (14.0-18.0) L 08/11/18 11:00 Hct 41.1 % (42.0-52.0) L 08/11/18 11:00 MCV 86.7 fl (80.0-105.0) 08/11/18 11:00 MCH 28.7 pg (25.0-35.0) 08/11/18 11:00 MCHC 33.1 g/dl (31.0-37.0) 08/11/18 11:00 RDW 16.7 % (11.5-14.5) H 08/11/18 11:00 Plt Count 277 10^3/uL (120.0-450.0) 08/11/18 11:00 MPV 9.6 fl (7.0-11.0) 08/11/18 11:00 Neut % (Auto) 34.0 % (50.0-68.0) L 08/10/18 11:45 Lymph % (Auto) 47.4 % (22.0-35.0) H 08/10/18 11:45 Polk % (Auto) 10.1 % (1.0-6.0) H 08/10/18 11:45 Eos % (Auto) 7.7 % (1.5-5.0) H 08/10/18 11:45 Baso % (Auto) 0.8 % (0.0-3.0) 08/10/18 11:45 Lymph # (Auto) 1.8 (1.2-3.4) 08/10/18 11:45 Polk # (Auto) 0.4 (0.1-0.6) 08/10/18 11:45 Eos # (Auto) 0.3 (0.0-0.7) 08/10/18 11:45 Baso # (Auto) 0.03 K/mm3 (0.0-2.0) 08/10/18 11:45 Absolute Neuts (auto) 1.29 (1.4-6.5) L 08/10/18 11:45 PT 11.1 SECONDS (9.4-12.5) 08/10/18 11:45 INR 0.98 08/10/18 11:45 APTT 28.6 Seconds (26.9-38.3) 08/10/18 11:45 pCO2 57 mm/Hg (35-45) H 08/10/18 13:45 pO2 38.0 mm/Hg (80-100) L* 08/10/18 13:45 HCO3 28.0 mmol/L (21-28) 08/10/18 13:45 ABG pH 7.30 (7.35-7.45) L 08/10/18 13:45 ABG Total CO2 29.7 mmol.L (22-28) H 08/10/18 13:45 ABG O2 Saturation 77.5 % (95-98) L 08/10/18 13:45 ABG Base Excess 0.4 mmol/L (-2.0-3.0) 08/10/18 13:45 ABG Potassium 4.2 mmol/L (3.6-5.2) 08/10/18 13:45 Sodium 138.0 mmol/L (132-148) 08/10/18 13:45 Chloride 104.0 mmol/L (98-107) 08/10/18 13:45 Glucose 103 mg/dl (75-110) 08/10/18 13:45 Lactate 1.6 mmol/L (0.7-2.1) 08/10/18 13:45 FiO2 21.0 % 08/10/18 13:45 Sodium 138 mmol/L (132-148) 08/11/18 11:00 Potassium 4.2 mmol/L (3.6-5.0) 08/11/18 11:00 Chloride 105 mmol/L (98-107) 08/11/18 11:00 Carbon Dioxide 23 mmol/L (21-33) 08/11/18 11:00 Anion Gap 15 (10-20) 08/11/18 11:00 BUN 19 mg/dL (7-21) 08/11/18 11:00 Creatinine 1.1 mg/dl (0.8-1.5) 08/11/18 11:00 Est GFR ( Amer) > 60 08/11/18 11:00 Est GFR (Non-Af Amer) > 60 08/11/18 11:00 Random Glucose 161 mg/dL (70-110) H 08/11/18 11:00 Calcium 9.5 mg/dL (8.4-10.5) 08/11/18 11:00 Total Bilirubin 0.4 mg/dL (0.2-1.3) 08/11/18 11:00 AST 19 U/L (17-59) 08/11/18 11:00 ALT 15 U/L (7-56) 08/11/18 11:00 Alkaline Phosphatase 98 U/L (38-126) 08/11/18 11:00 Lactate Dehydrogenase 563 U/L (333-699) 08/10/18 11:45 Total Creatine Kinase 297 U/L (35-230) H 08/10/18 11:45 CK-MB (CK-2) 3.2 ng/mL (0.0-3.6) 08/10/18 11:45 CK-MB (CK-2) % Cancelled 08/10/18 11:45 Troponin I < 0.01 ng/mL 08/10/18 11:45 Total Protein 7.0 g/dL (5.8-8.3) 08/11/18 11:00 Albumin 4.3 g/dL (3.0-4.8) 08/11/18 11:00 Globulin 2.7 gm/dL 08/11/18 11:00 Albumin/Globulin Ratio 1.6 (1.1-1.8) 08/11/18 11:00 Arterial Blood Potassium 4.2 mmol/L (3.6-5.2) 08/10/18 13:45 Alcohol, Quantitative < 10 mg/dL (0-10) 08/10/18 11:45 - Hospital Course Hospital Course: Upon Admission As per HPI: "58 year old male with PMHx of asthma who presents to the ED with complaints of difficulty breathing. Patient states that for the past few weeks he has been having these symptoms which has been getting progressively worse. He has been using his nebulizer approximately 3-4 times a day, which normally provides him relief. However, for the past week he has had less relief. He claims that his Ventolin inhaler hasn't been helping for the last few days as well. For the past month, he has also been awoken by his symptoms at least once a day. He says he has to use his rescue inhaler every 4 hours and receives no relief. The patient says that for the past year his house has been having work done, such as painting and getting new pipes. However, he is unsure whether his symptoms have gotten worse since then. He denies exacerbation of his symptoms during a particular season, but says that whenever the weather changes his symptoms worsen. Patient denies any history of intubation. On ROS denied fever, chills, headache, dizziness, chest pain, palpitations, cough, abd pain, nausea, vomiting, bowel/bladder complaints, pain/swelling in his legs b/l. He denied any recent illnesses, travel, sick contacts. " Hospital Course Patient was admitted for further work up. He received Duoneb x 3 in the ED and solumedrol 125mg. CXR unremarkable. Patient was started on IV steroids and breathing treatments both scheduled and prn. Patient was continued on home Brovana and Pulmicort. He was counseled thoroughly on the importance of smoking cessation. Patient was monitored overnight and clinically improved. On day of discharge patient was deemed medically optimized for discharge home. Discharge Instructions You are being discharged from [facility]. You were admitted for an asthma exacerbation. You have been given the following medications: -Budesonide/Formoterol 2 puffs inhaled twice a day -Ventolin 2puffs every 6 hours as needed for wheezing/shortness of breath -Prednisone to be taken as directed You have an appointment at the [facility] on August 19 at 2:[address] Muñoz to establish care. Please arrive 20-30 minutes early to register. If symptoms return please visit your nearest Emergency Room Department. Instructions discussed in detail with patient who voiced understanding and agreement with discharge plan. Discharge Exam - Head Exam Head Exam: ATRAUMATIC, NORMAL INSPECTION, NORMOCEPHALIC - Eye Exam Eye Exam: EOMI, Normal appearance, PERRL. absent: Conjunctival injection, Scleral icterus Pupil Exam: NORMAL ACCOMODATION - ENT Exam ENT Exam: Mucous Membranes Moist - Neck Exam Neck exam: Full Rom, Normal Inspection - Respiratory Exam Respiratory Exam: Clear to PA & Lateral, NORMAL BREATHING PATTERN, UNREMARKABLE. absent: Accessory Muscle Use, Rales, Rhonchi, Wheezes - Cardiovascular Exam Cardiovascular Exam: +S1, +S2. absent: Systolic Murmur - GI/Abdominal Exam GI & Abdominal Exam: Normal Bowel Sounds, Soft. absent: Firm, Guarding, Rigid, Tenderness - Rectal Exam Rectal Exam: Deferred - Extremities Exam Extremities exam: normal capillary refill, normal inspection, pedal pulses present - Back Exam Back exam: NORMAL INSPECTION. absent: rash noted, tenderness - Neurological Exam Neurological exam: Alert, CN II-XII Intact, Oriented x3 - Psychiatric Exam Psychiatric exam: Normal Affect, Normal Mood - Skin Skin Exam: Dry, Intact, Normal Color, Warm Discharge Plan - Discharge Medications Prescriptions: Albuterol HFA [Ventolin HFA 90 mcg/actuation (8 g)] 2 puff IH [id number] PRN #1 inhaler PRN Reason: Shortness Of Breath Budesonide/Formoterol Fumarate [Symbicort 80-4.5 Mcg Inhaler] 2 puff IH BID #1 inhaler predniSONE [Prednisone] See Taper PO DAILY #1 tab - Follow Up Plan Condition: STABLE Disposition: HOME/ ROUTINE Instructions: Smoking: Not Just Harmful to Your Lungs and Heart, Asthma (DC), Asthma (GEN) Additional Instructions: You are being discharged from [facility]. You were admitted for an asthma exacerbation. You have been given the following medications: -Budesonide/Formoterol 2 puffs inhaled twice a day -Ventolin 2puffs every 6 hours as needed for wheezing/shortness of breath -Prednisone to be taken as directed You have an appointment at the [facility] on August 19 at 2:[address] Muñoz to establish care. Please arrive 20-30 minutes early to register. If symptoms return please visit your nearest Emergency Room Department. Referrals: FAMILY PROVIDER,NO [Primary Care Provider] - <Gabo Dorado - Last Filed: 08/11/18 15:15> Provider - Provider Date of Admission: 08/10/18 12:59 Attending physician: Gabo Dorado MD Primary care physician: NO FAMILY PROVIDER Consults: 08/10/18 14:56 Inpatient BUSINESS ANALYSIS PROFESSIONAL Core Measures Referral Routine Comment: asthma Physician Instructions: Reason For Exam: assess Transition In Care/Readmission Reduction Routine Comment: asthma Physician Instructions: Reason For Exam: assess Hospital Course - Lab Results Lab Results: Most Recent Lab Values WBC 15.1 10^3/uL (4.5-11.0) H D 08/11/18 11:00 RBC 4.74 10^6/uL (3.5-6.1) 08/11/18 11:00 Hgb 13.6 g/dL (14.0-18.0) L 08/11/18 11:00 Hct 41.1 % (42.0-52.0) L 08/11/18 11:00 MCV 86.7 fl (80.0-105.0) 08/11/18 11:00 MCH 28.7 pg (25.0-35.0) 08/11/18 11:00 MCHC 33.1 g/dl (31.0-37.0) 08/11/18 11:00 RDW 16.7 % (11.5-14.5) H 08/11/18 11:00 Plt Count 277 10^3/uL (120.0-450.0) 08/11/18 11:00 MPV 9.6 fl (7.0-11.0) 08/11/18 11:00 Neut % (Auto) 34.0 % (50.0-68.0) L 08/10/18 11:45 Lymph % (Auto) 47.4 % (22.0-35.0) H 08/10/18 11:45 Polk % (Auto) 10.1 % (1.0-6.0) H 08/10/18 11:45 Eos % (Auto) 7.7 % (1.5-5.0) H 08/10/18 11:45 Baso % (Auto) 0.8 % (0.0-3.0) 08/10/18 11:45 Lymph # (Auto) 1.8 (1.2-3.4) 08/10/18 11:45 Polk # (Auto) 0.4 (0.1-0.6) 08/10/18 11:45 Eos # (Auto) 0.3 (0.0-0.7) 08/10/18 11:45 Baso # (Auto) 0.03 K/mm3 (0.0-2.0) 08/10/18 11:45 Absolute Neuts (auto) 1.29 (1.4-6.5) L 08/10/18 11:45 PT 11.1 SECONDS (9.4-12.5) 08/10/18 11:45 INR 0.98 08/10/18 11:45 APTT 28.6 Seconds (26.9-38.3) 08/10/18 11:45 pCO2 57 mm/Hg (35-45) H 08/10/18 13:45 pO2 38.0 mm/Hg (80-100) L* 08/10/18 13:45 HCO3 28.0 mmol/L (21-28) 08/10/18 13:45 ABG pH 7.30 (7.35-7.45) L 08/10/18 13:45 ABG Total CO2 29.7 mmol.L (22-28) H 08/10/18 13:45 ABG O2 Saturation 77.5 % (95-98) L 08/10/18 13:45 ABG Base Excess 0.4 mmol/L (-2.0-3.0) 08/10/18 13:45 ABG Potassium 4.2 mmol/L (3.6-5.2) 08/10/18 13:45 Sodium 138.0 mmol/L (132-148) 08/10/18 13:45 Chloride 104.0 mmol/L (98-107) 08/10/18 13:45 Glucose 103 mg/dl (75-110) 08/10/18 13:45 Lactate 1.6 mmol/L (0.7-2.1) 08/10/18 13:45 FiO2 21.0 % 08/10/18 13:45 Sodium 138 mmol/L (132-148) 08/11/18 11:00 Potassium 4.2 mmol/L (3.6-5.0) 08/11/18 11:00 Chloride 105 mmol/L (98-107) 08/11/18 11:00 Carbon Dioxide 23 mmol/L (21-33) 08/11/18 11:00 Anion Gap 15 (10-20) 08/11/18 11:00 BUN 19 mg/dL (7-21) 08/11/18 11:00 Creatinine 1.1 mg/dl (0.8-1.5) 08/11/18 11:00 Est GFR ( Amer) > 60 08/11/18 11:00 Est GFR (Non-Af Amer) > 60 08/11/18 11:00 Random Glucose 161 mg/dL (70-110) H 08/11/18 11:00 Calcium 9.5 mg/dL (8.4-10.5) 08/11/18 11:00 Total Bilirubin 0.4 mg/dL (0.2-1.3) 08/11/18 11:00 AST 19 U/L (17-59) 08/11/18 11:00 ALT 15 U/L (7-56) 08/11/18 11:00 Alkaline Phosphatase 98 U/L (38-126) 08/11/18 11:00 Lactate Dehydrogenase 563 U/L (333-699) 08/10/18 11:45 Total Creatine Kinase 297 U/L (35-230) H 08/10/18 11:45 CK-MB (CK-2) 3.2 ng/mL (0.0-3.6) 08/10/18 11:45 CK-MB (CK-2) % Cancelled 08/10/18 11:45 Troponin I < 0.01 ng/mL 08/10/18 11:45 Total Protein 7.0 g/dL (5.8-8.3) 08/11/18 11:00 Albumin 4.3 g/dL (3.0-4.8) 08/11/18 11:00 Globulin 2.7 gm/dL 08/11/18 11:00 Albumin/Globulin Ratio 1.6 (1.1-1.8) 08/11/18 11:00 Arterial Blood Potassium 4.2 mmol/L (3.6-5.2) 08/10/18 13:45 Alcohol, Quantitative < 10 mg/dL (0-10) 08/10/18 11:45 Attending/Attestation - Attestation I have personally seen and examined this patient.: Yes I have fully participated in the care of the patient.: Yes I have reviewed all pertinent clinical information, including history, physical exam and plan: Yes Notes (Text): 08/11/18 15:06 Medical record note made by the resident after discussion with my direction and input after the patient was personally seen and examined by me. I have reviewed the chart and agree that the record accurately reflects by personal performance of the history, physical exam, data review, and medical decision-making, in the course for the patient. I have also personally directed the plan of care. 58 yrs old male with PMH of Mild Persistent Asthma was admitted with acute asthma exacerbation. Patient has responded well to Nebulization/Steroid He is on room air and is ambulatory. He will be discharged home on tapering dose of Prednisone. Hew ill follow up with [facility]. Issue of compliance with medication was adiscussed in detail with him. 08/11/18 15:15
== END 2018-08-11 13:47 | disposition home or self-care (01) ==
LOC: ED 11:07 → ERH 12:59 → 5RNO 15:02
PROVIDERS: ADMIT Internal Medicine; ATTEND Internal Medicine
DX: J45.31 Mild persistent asthma with (acute) exacerbation (principal); J44.9 Chronic obstructive pulmonary disease, unspecified; F17.200 Nicotine dependence, unspecified, uncomplicated; Z79.51 Long term (current) use of inhaled steroids; Z82.49 Family history of ischemic heart disease and other diseases of the circulatory system; Z91.048 Other nonmedicinal substance allergy status
CPT/HCPCS: 36415; 71045; 80053; 80320; 82550; 82553; 82803; 83615; 84484; 85025; 85027; 85610; 85730; 93005; 94640; 96374; 99285; G0378; J2920; J2930